=== PATIENT | male | born 1975 | race Caucasian/White ===

== ENCOUNTER 2023-11-28 09:17 | Inpatient (IN) | payer OTHER, SELFPAY ==
[2023-11-28] VITALS (19 sets, daily range): BP systolic 130–164; BP diastolic 63–106; PULSE 99–119; RESP 18–30; TEMP 36.9–37; O2SAT 88–100; BMI 20.4
--- NOTE | ~2023-11-28 | XR_ITS ---
Portable chest x-ray Comparison: 11/28/2023 Clinical History: Pneumonia Findings: Right basilar consolidation is compatible with pneumonia. Left lung clear. Cardiomediasti nal silhouette is stable. Bones and soft tissues are unremarkable. Impression: Right basilar pneumonia. Reviewed, dictated and finalized at [facility]. GER STRATEGIC ALLIANCES Impression: Right basilar pneumonia.
--- NOTE | ~2023-11-28 | XR_ITS ---
EXAMINATION: XR chest 1V portable DATE: 11/28/2023 10:13 INDICATION: Shortness of breath. TECHNIQUE: A single frontal view of the chest was obtained on 2 radiographs. COMPARISON: Chest 2 views 08/22/2019 FINDINGS: There are airspace opacities in right lower lobe. No pleural effusion or pneumothorax. The heart size is normal. IMPRESSION: 1. Right lower lobe airspace opacities, consistent with pneumonia . Radiographs are recommended in a few weeks to confirm resolution and exclude malignancy. Reviewed, dictated and finalized at location E. EGE BASKETBALL COACH
--- NOTE | ~2023-11-28 | XR_ITS ---
Portable chest x-ray Comparison: 11/30/2023 Clinical History: Pneumonia Findings: Right basilar pneumonia is unchanged. Left lung remains clear. Cardiomediastinal silhouet te is stable. Bones and soft tissues are unremarkable. Impression: Stable right lower lobe pneumonia. Reviewed, dictated and finalized at location . NQUENT NOTICE MACHINE OPERATOR Impression: Stable right lower lobe pneumonia.
--- NOTE | ~2023-11-28 | CT_ITS ---
EXAMINATION: CTA chest PE protocol DATE: 11/28/2023 11:41 INDICATION: Cough. Nausea and vomiting. TECHNIQUE: Computed tomography angiography (CTA) of the chest was performed with 100 mL Omnipaque-350 intravenous contrast timed to evaluate the pulmonary arteries. Coronal maximum intensity projection 3D-reconstructions were created by the technologist. Automated exposure control and iterative reconst ruction technique were employed. The dose-length product was 333.01 mGy-cm. COMPARISON: Chest single view 11/28/2023 FINDINGS: There are airspace and groundglass opacities with air bronchograms in right lower lobe. The re are mild airspace opacities in right middle lobe. There are centrilobular nodules in right upper l obe. There are airspace opacities in anteromedial basal segment left lower lobe. There are centrilobu lar nodules in left lower lobe. No pleural effusion. The heart size is normal. No pericardial effusio n. There is no pulmonary embolus. There is mild thoracic spondylosis. There is mild chronic anterior wedging of T12 and L1 vertebral bodies. IMPRESSION: 1. No pulmonary embolus. 2. Multifocal pneumonia with a lower lung predominance, right worse than left. Reviewed, dictated and finalized at location E. ESSION SUPERVISOR
--- NOTE | 2023-11-28 09:40 | ECG_ITS ---
Measurements Intervals [place] Rate: 110 P: 79 [place]: 134 QRS: 81 QRSD: 97 T: 60 QT: 307 QTc: 417 Interpretive Statements SINUS TACHYCARDIA POSSIBLE LEFT ATRIAL ENLARGEMENT INCOMPLETE RIGHT BUNDLE BRANCH BLOCK BASELINE WANDER- V4, V6 ABNORMAL ECG NO PREVIOUS ECG AVAILABLE FOR COMPARISON Electronically Signed On 11-28-2023 10:16:18 BONDED STRUCTURES REPAIRER by Janes Mazariegos D.O.
--- NOTE | 2023-11-28 09:47 | ED.GENADULT ---
HPI - General Adult General Chief complaint: Weakness Stated complaint: weakness Time Seen by Provider: 11/28/23 09:20 History of Present Illness HPI narrative: Gregg Kendrick is a 48 y/o male with PMhx of DM type II who presents today with his for generalized weakness. states that he started not feeling well 5 days ago with rhinorrhea/ body aches he started to feel worse 2 days ago and had some nausea and vomiting went to an and was swabbed for the flu / strep and it was negative and d/c home with ondansetron. states that yesterday and today he has become worse with severe fatigue / not eating for about 4 days/ has been tolerating liquids at home. Denies chest pain/ headache/ abdominal pain. Related Data Home Medications Medication Instructions Recorded Confirmed atorvastatin 20 mg tablet 20 mg PO DAILY 11/28/23 11/28/23 glimepiride 2 mg tablet 2 mg PO BID 11/28/23 11/28/23 metformin 500 mg tablet 500 mg PO BID 11/28/23 11/28/23 Allergies Allergy/AdvReac Type Severity Reaction Status Date / Time No Known Allergies Allergy Mild Verified 11/28/23 09:17 Review of Systems Review of Systems: CONSTITUTIONAL: Denies fever, chills, or sweats. EYES: Denies visual changes, redness, or discharge. ENT: Reports rhinorrhea and congestion, denies sore throat, or otalgia. CARDIOVASCULAR: Denies chest pain, palpitations, or edema. RESPIRATORY: Reports cough / cold symptoms that started 5 days ago GASTROINTESTINAL: Denies abdominal pain, nausea, vomiting, or diarrhea. GENITOURINARY: Denies dysuria or hematuria. SKIN: Denies rash or itching. MUSCULOSKELETAL: Denies back pain, joint pain, or myalgia. NEUROLOGIC: Denies headache, numbness, dizziness, or weakness. PSYCHIATRIC: Denies anxiety or depression. Exam Narrative: GENERAL: appears unwell/ disheveled HEAD: Normocephalic, atraumatic. EYES: PERRLA and EOMI. ENT: Nares clear, no rhinorrhea or epistaxis. Mucous membranes severely dry Oropharynx without tonsillar hypertrophy exudate or other lesions. NECK: Supple. No adenopathy or masses. No carotid bruits or JVD CHEST: RR labored / Coarse lung sounds more on the right then left HEART: Regular rate and rhythm. No murmur heard. Normal peripheral pulses. ABDOMEN: Soft, nontender, nondistended, normal active bowel sounds. EXTREMITIES: Normal range of motion. No edema. SKIN: Warm, dry, no rash. NEURO: No focal deficits. Alert and oriented x3. PSYCH: Normal mood and affect. Course Vital Signs Vital signs: Vital Signs Pulse Rate 114 H 11/28/23 09:31 Respiratory Rate 22 H 11/28/23 09:31 Blood Pressure 150/86 H 11/28/23 09:31 Pulse Oximetry 88 L 11/28/23 09:31 Oxygen Flow Rate 2 11/28/23 09:31 Pulse Rate 104 H 11/28/23 12:31 Respiratory Rate 25 H 11/28/23 12:31 Blood Pressure 164/94 H 11/28/23 12:31 Pulse Oximetry 100 11/28/23 12:31 Oxygen Flow Rate 2 11/28/23 10:00 Medical Decision Making MDM Narrative Medical decision making narrative: 48 y/o male pmhx of DM type two presents with his who states he hasn't felt well since Tuesday 5 days ago with URI symptoms with nasal congestion slight cough / body aches and started to feel worse with no food intake and went to the 2 days ago and was tested for flu/strep and d/c home with ondansetron. states he has not vomited since 2 days ago and is taking liquids at home but has not eaten in 4 days and his cough is getting worse and becoming more productive and pt is becoming much more weak generally. On exam pt appears severly dehydrated/ labored RR of 25-30/ coarse lung sounds cool and bluish nail beds initial O2 sat reading in the low 80's placed on 2 L and improved to 96%. Patient is alert and oriented X 4 and denies chest pain/ back pain/ headache/ Concern for : Sepsis/ DKA/ Dehydration/ Pneumonia / Pulmonary embolism / Plan to start a Sepsis work up while waiting on lab results including IV fluids and
[2023-11-28] MEDS: LACTATED RINGERS 2,000 ML 999 ML (09:55)
[2023-11-28 10:07] LABS: Basophils Absolute Auto 0.1 K/mm3 (0.0-0.1); Basophils Percent Auto 0.7 % (0.2-1.2); Eosinophils Absolute Auto 0.1 K/mm3 (0-0.3); Eosinophils Percent Auto 0.4 % (0-4.4); Hematocrit 43.5 % (42.0-52.0); Hemoglobin 14.6 g/dL (14.0-18.0); Immature Granulocyte Absolute 0.41 K/mm3 (0.00-0.031); Lymphocytes Absolute Auto 0.72 K/mm3 (0.9-3.2); Lymphocytes Percent Auto 3.5 % (18.3-44.2); Mean Corpuscular HGB Conc 33.6 g/dl (32-36); Mean Corpuscular Volume 86.5 fl (80-100); Mean Platelet Volume 10.4 fl (7.4-10.4); Monocytes Absolute Auto 1.4 K/mm3 (0.1-0.6); Monocytes Percent Auto 6.8 % (2.6-8.5); Neutrophils Percent Auto 86.6 % (45.5-73.1); Platelet Count Result 309 k/mm3 (150-375); Red Blood Count 5.03 M/mm3 (4.6-6.20); Red Cell Distribution Width 12.6 % (11.5-14.5); White Blood Count 20.8 K/mm3 (4.5-10.0)
[2023-11-28 10:17] LABS: Lactic Acid Reflex 2.6 mmol/L (0.7-2.0)
[2023-11-28 10:20] LABS: INR 1.1; Prothrombin Time 15.1 Seconds (11.1-14.7)
[2023-11-28 10:21] LABS: Partial Thromboplastin Time 32.1 SECONDS (22.3-36.8)
[2023-11-28 10:44] LABS: Influenza A QL RT-PCR Negative (Negative); Influenza B QL RT-PCR Negative (Negative); RSV RNA, RT-PCR Negative (Negative); SARS-CoV-2 RNA PCR Negative (Negative)
[2023-11-28] MEDS: DOXYCYCLINE 100 MG/NS 100 ML 100 MG/100 ML BAG IVPB (10:50)
[2023-11-28 11:03] LABS: D Dimer 1.97 ug/mL (<0.48)
[2023-11-28 11:25] LABS: Alanine Aminotransferase 17 U/L (6-50); Alkaline Phosphatase 187 U/L (38-126); Anion Gap 23 mmol/L (8-16); Aspartate Amino Transferase 14 U/L (17-59); Bilirubin,Total 0.6 mg/dL (0.2-1.3); Blood Urea Nitrogen 50 mg/dL (9-20); Calcium 11.1 mg/dL (8.4-10.2); Carbon Dioxide 9 mmol/L (22-30); Chloride 97 mmol/L (98-107); Estimated CRCL calculation 49 ml/min; Estimated Glomerular Filt Rate 44; Glucose 714 mg/dL (65-110); Potassium 5.3 mmol/L (3.4-5.0); Sodium 129 mmol/L (137-145)
[2023-11-28 11:29] LABS: Base Excess ABG -13.8 mEq/l (+/-2.0); Fractional Inspired Oxygen 28 %; HCO3 ABG 13.1 mEq/l (22.0-26.0); PCO2 ABG 33.8 mmHg (35.0-45.0); PO2 FiO2 Ratio Arterial Blood 1.56 %; Total Hemoglobin 13.3 g/dL (12.0-18.0)
[2023-11-28 11:31] LABS: PO2 ABG 43.7 mmHg (80.0-100.0); pH ABG 7.205 (7.350-7.450)
[2023-11-28 11:32] LABS: Device NASAL CANNULA; Oxygen Saturation ABG 70.1 % (95.0-100.0)
[2023-11-28 11:34] LABS: Estimated CRCL calculation 55 ml/min; Estimated Glomerular Filt Rate 50
[2023-11-28 11:48] LABS: CRP > 45.0 mg/dL (<1.0)
[2023-11-28 11:53] LABS: Magnesium 2.8 mg/dL (1.6-2.3); Phosphorus 4.8 mg/dL (2.5-4.5)
[2023-11-28 12:02] LABS: Appearance Urine Clear (Clear); Bacteria Urine None Seen /hpf; Bilirubin Urine Negative (Negative); Blood Urine 1+ (Negative); Color Urine Yellow (Yellow); Glucose Urine UA 3+ mg/dL (Negative); Ketones Urine 2+ mg/dL (Negative); Leukocyte Esterase Ur Negative LEU/UL (Negative); Nitrate Urine Negative (Negative); Protein Urine 1+ mg/dL (Negative); RBC Urine 0-2 /hpf (0-2); Specific Grav Ur 1.028 (1.001-1.035); Squamous Epithelial Cell Urine None seen /hpf (Few); Urobilinogen Urine 0.2 mg/dL (<2.0); WBC Urine 0-5 /hpf
[2023-11-28 12:13] LABS: Add Urine Microscopic? YES
[2023-11-28 12:21] LABS: Anion Gap 16 mmol/L (8-16); Blood Urea Nitrogen 46 mg/dL (9-20); Calcium 9.4 mg/dL (8.4-10.2); Carbon Dioxide 10 mmol/L (22-30); Chloride 99 mmol/L (98-107); Estimated CRCL calculation 69 ml/min; Estimated Glomerular Filt Rate > 60; Glucose 682 mg/dL (65-110); Potassium 5.3 mmol/L (3.4-5.0); Sodium 125 mmol/L (137-145)
[2023-11-28] MEDS: INSULIN HUMAN REGULAR (*BKC) 100 UNITS in SODIUM CHLORIDE 0.9% IV 99 ML 7.5 UNITS IV CONT (12:24)
[2023-11-28] MEDS: LACTATED RINGERS 1,000 ML 999 ML IV CONT ×2 (12:28→13:19)
[2023-11-28 13:04] LABS: Reflex Lactic Acid Yes or No Add Lactic
--- NOTE | 2023-11-28 13:28 | WPDCNINT ---
Assessment and Plan Assessment and plan (1) Diabetic ketoacidosis: Code(s): E11.10 - Type 2 diabetes mellitus with ketoacidosis without coma Status: Acute Assessment and Plan: patient admitted on 11/28/2023 with hyperglycemia, anion gap metabolic acidosis and diabetic ketoacidosis, patient received 2 L IV fluid bolus in the ER, started on insulin infusion per DKA protocol - patient given additional 1 L IV fluid bolus in the ICU - continue insulin infusion for now per DKA protocol - NPO except ice chips only - hemoglobin A1c is pending - will transition patient once anion gap and metabolic acidosis resolves (2) Type 2 diabetes mellitus: Code(s): E11.9 - Type 2 diabetes mellitus without complications Status: Acute Assessment and Plan: patient with history type 2 diabetes on oral hypoglycemics - glimepiride and metformin (3) Sepsis: Code(s): A41.9 - Sepsis, unspecified organism Status: Acute Assessment and Plan: patient presented with shortness of breath, cough, upper respiratory symptoms with nasal congestion. Denies any fevers - patient with leukocytosis, elevated lactic acid, acute kidney injury - trend lactic acids -11/27; chest x-ray showed right lower lobe pneumonia -11/27: chest CTA : no pulmonary embolism, multifocal pneumonia with lower lung predominance, right worse than left. -11/27: started patient on ceftriaxone, azithromycin and vancomycin given extensive pneumonia (4) Pneumonia: Code(s): J18.9 - Pneumonia, unspecified organism Status: Acute Assessment and Plan: treatment as above (5) Acute kidney injury: Code(s): N17.9 - Acute kidney failure, unspecified Status: Acute Assessment and Plan: patient presented with diabetic ketoacidosis, pneumonia, decreased oral intake, acute kidney injury with creatinine of 1.70 on admission patient has been fluid resuscitated - repeat creatinine 1.20 - continue to monitor renal function, electrolytes and urine output (6) Hyperlipidemia: Code(s): E78.5 - Hyperlipidemia, unspecified Status: Acute Assessment and Plan: patient on atorvastatin at home, will restart once patient starts taking oral medications (7) Oral thrush: Code(s): B37.0 - Candidal stomatitis Status: Acute Assessment and Plan: likely related to diabetes - have ordered nystatin swish and spit Plan DVT prophylaxis: Lovenox Stress ulcer prophylaxis: not indicated Nutrition:NPO except ice chips Code Status: full code Critical Care Time Spent: 48 minutes discussed with patient and spouse at bedside, updated them with patient's condition and plan of care. I answered all questions Due to a high probability of clinically significant, life threatening deterioration, the patient required my highest level of preparedness to intervene emergently and I personally spent this critical care time directly and personally managing the patient. This critical care time included obtaining a history; examining the patient; pulse oximetry; ordering and review of studies; arranging urgent treatment with development of a management plan; evaluation of patient's response to treatment; frequent reassessment; and discussions with other providers. It was exclusive of separately billable procedures and treating other patients and teaching time. Please see Assessment and Plan section and the rest of the note for further information on patient assessment and treatment This dictation may have been done utilizing a voice recognition system. Attempts have been made to correct errors. However, there may be uncorrected grammatical, spelling, and recognitions errors present. Liquid Sugar Melter Consult Note Consult date: 11/28/23 Reason for consult: Diabetic ketoacidosis, pneumonia, generalized weakness, hyperglycemia, decreased oral intake HPI: Gregg Kendrick is a 48 year old male with past medical histo
[2023-11-28 13:53] LABS: Lactic Acid 1.8 mmol/L (0.7-2.0)
[2023-11-28 14:01] LABS: Glucose 552 mg/dL (65-110)
[2023-11-28 14:02] LABS: Beta-Hydroxybutyrate/Acetoacetate 6.38 mmol/L (0.02-0.27)
[2023-11-28 14:44] LABS: Glucose Point of Care > 500 mg/dl (65-105)
[2023-11-28 14:44] LABS: Glucose Point of Care 475 mg/dl (65-105)
[2023-11-28 15:11] LABS: MRSA (PCR) NOT DETECTED (NOT DETECTE)
[2023-11-28 15:13] LABS: Glucose Point of Care 404 mg/dl (65-105)
[2023-11-28 15:14] LABS: Hemoglobin A1C 12.1 % (<5.7)
[2023-11-28] MEDS: SODIUM CHLORIDE 0.9% IV 1,000 ML 150 ML IV CONT (15:17)
--- NOTE | 2023-11-28 15:17 | PM.IMHP ---
H&P: HPI History of Present Illness Date/Time: 11/28/23 15:17 Chief Complaint: Weakness, Cough, N/V Narrative: 48 y/o M presents here with generalized weakness, rhinorrhea, body aches, nausea, vomiting, fatigue, and lack of appetite with PMH of DM2 and HLD. Patient presents here from home for further evaluation of fatigue, weakness, and body aches. Patient reports he began feeling unwell on Tue (11/23) with rhinorrhea and body aches. Then developed lack of appetite/poor PO intake on . Tuesday (11/25) he developed N/V, extreme lack of energy, and he sought care at [facility]. He tested negative for Influenza, COVID, and Strep. He was ultimately discharged home with Zofran prescription. Patient further deteriorated over the last 24 hours and is now reporting severe fatigue, abdominal discomfort, and abdominal cramping. Has not been able to eat well but tolerating liquids for a total of 4 days. Patient sought care today due to continued inability to tolerate more than liquids, the extreme fatigue, and general malaise. Arrived to [facility] ED in respiratory distress. Initial O2 sat 80's on RA. Placed on supplemental O2 with subsequent correction and reduced distress. Patient now in ICU and reporting improvement post-fluids and reduction in glucose levels. Patient denies any unintentional weight loss. Initial VS at presentation: 98.5 F, HR 114, RR 22, 150/86, 88% on RA. Placed on 2 L NC which increased sats to 99% ED workup showed: WBC 20.8, no anemia, D-dimer 1.97, sodium 129, K 5.3, creatinine 1.7, gap 23, glucose 714, lactic acid 2.6, CRP > 45.0, beta-hydroxy 6.38, and UA not suspicious for UTI. Viral PCR negative. MRSA PCR negative. CXR showed right lower lobe airspace opacity. Chest CTA showed no PE and multifocal pneumonia with a lower lung predominance (right worse than left). Review of Systems Review of Systems: All systems reviewed & are unremarkable except as noted in HPI and below PMFSH Past Medical History Medical History Hyperlipidemia Type 2 diabetes mellitus Surgical History Surgical History History of appendectomy Social History Social History Smoking packs per day: 1 Smoking cigarettes per day: 20.0 Years smoked: 20 Smoking pack-years: 20.00 Smoking status: Current every day smoker Tobacco type: cigarettes Smoking end date: 11/21/23 Alcohol intake: unknown Substance use: unknown Spiritual care concerns: No Meds Home Medications and Allergies Home Medications Medication Instructions Recorded Confirmed Type atorvastatin 20 mg tablet 20 mg PO DAILY 11/28/23 11/28/23 History glimepiride 2 mg tablet 2 mg PO BID 11/28/23 11/28/23 History metformin 500 mg tablet 500 mg PO BID 11/28/23 11/28/23 History Allergies Allergy/AdvReac Type Severity Reaction Status Date / Time No Known Allergies Allergy Mild Verified 11/28/23 09:17 Vital Signs Vital Signs - 24 hr 11/28/23 09:31 11/28/23 09:47 11/28/23 10:51 Temperature Pulse Rate 114 H 114 H 114 H Respiratory Rate 22 H 22 H Blood Pressure 150/86 H 146/106 H Pulse Oximetry 88 L 96 Oxygen Flow Rate 2 11/28/23 10:00 11/28/23 10:15 11/28/23 12:06 Temperature Pulse Rate 119 H 104 H Respiratory Rate 18 22 H Blood Pressure 146/80 H Pulse Oximetry 96 98 Oxygen Flow Rate 2 11/28/23 12:09 11/28/23 12:11 11/28/23 12:29 Temperature Pulse Rate 103 H 104 H 103 H Respiratory Rate 30 H 26 H 21 H Blood Pressure 153/89 H 153/89 H 152/97 H Pulse Oximetry 99 99 100 Oxygen Flow Rate 11/28/23 12:31 11/28/23 14:30 11/28/23 14:57 Temperature 98.5 F Pulse Rate 104 H 99 Respiratory Rate 25 H 23 H Blood Pressure 164/94 H 155/90 H Pulse Oximetry 100 99 Oxygen Flow Rate Exam Narrative: whiteside pallor. Co
[2023-11-28 16:02] LABS: Anion Gap 12 mmol/L (8-16); Blood Urea Nitrogen 40 mg/dL (9-20); Calcium 10.6 mg/dL (8.4-10.2); Carbon Dioxide 19 mmol/L (22-30); Chloride 105 mmol/L (98-107); Estimated CRCL calculation 68 ml/min; Estimated Glomerular Filt Rate > 60; Glucose 311 mg/dL (65-110); Potassium 4.4 mmol/L (3.4-5.0); Sodium 136 mmol/L (137-145)
[2023-11-28] MEDS: AZITHROMYCIN 500 MG/NS 250 ML 500 MG/250 ML BAG 250 MG IVPB (16:14)
[2023-11-28 16:18] LABS: Glucose Point of Care 297 mg/dl (65-105)
[2023-11-28 17:22] LABS: Glucose Point of Care 311 mg/dl (65-105)
[2023-11-28 17:57] LABS: Glucose Point of Care 170 mg/dl (65-105)
[2023-11-28] MEDS: KCL 20 MEQ/D5/0.45% SOD CHL 1,000 ML 150 ML IV CONT (18:06)
[2023-11-28] MEDS: NYSTATIN 100,000 UNITS/ML SUSP 5 ML ORAL.SUSP PO ×2 (18:14→20:39)
[2023-11-28] MEDS: VANCOMYCIN 1,500 MG/NS 500 ML 1,500 MG/500 ML BAG 250 MG IVPB (18:17)
[2023-11-28 19:07] LABS: Glucose Point of Care 120 mg/dl (65-105)
[2023-11-28 20:01] LABS: Anion Gap 6 mmol/L (8-16); Blood Urea Nitrogen 33 mg/dL (9-20); Calcium 9.8 mg/dL (8.4-10.2); Carbon Dioxide 22 mmol/L (22-30); Chloride 112 mmol/L (98-107); Estimated CRCL calculation 82 ml/min; Estimated Glomerular Filt Rate > 60; Glucose 110 mg/dL (65-110); Sodium 140 mmol/L (137-145)
[2023-11-28 20:21] LABS: Glucose Point of Care 114 mg/dl (65-105)
[2023-11-28] MEDS: INSULIN GLARGINE (*BKC) 100 UNITS/ML 15 UNITS SUB-Q (20:38)
[2023-11-28] MEDS: BENZONATATE 100 MG CAPSULE PO (21:23)
[2023-11-28 21:26] LABS: Glucose Point of Care 258 mg/dl (65-105)
[2023-11-28 21:47] LABS: Alveolar/Arterial O2 Gradient 90.1 mmHg; Base Excess ABG -5.6 mEq/l (+/-2.0); Fractional Inspired Oxygen 28 %; HCO3 ABG 19.3 mEq/l (22.0-26.0); Oxygen Content ABG 16.7 %vol (16.0-22.0); Oxygen Saturation ABG 92.8 % (95.0-100.0); Oxyhemoglobin 92.6 % THb (90.0-100.0); PCO2 ABG 35.6 mmHg (35.0-45.0); PO2 ABG 67.5 mmHg (80.0-100.0); PO2 FiO2 Ratio Arterial Blood 2.41 %; Total Hemoglobin 12.8 g/dL (12.0-18.0); pH ABG 7.351 (7.350-7.450)
[2023-11-28 21:48] LABS: Device NASAL CANNULA; Modified Allen's Test Pass
[2023-11-28 21:49] LABS: Site Drawn LEFT RADIAL
[2023-11-28 23:51] LABS: Ammonia < 9 umol/L (9-30)
[2023-11-29] VITALS (15 sets, daily range): BP systolic 125–161; BP diastolic 74–91; PULSE 98–114; RESP 20–35; TEMP 36.9–37.5; O2SAT 80–98; BMI 20.3
[2023-11-29 00:31] LABS: Anion Gap 10 mmol/L (8-16); Blood Urea Nitrogen 28 mg/dL (9-20); Calcium 9.4 mg/dL (8.4-10.2); Carbon Dioxide 17 mmol/L (22-30); Chloride 109 mmol/L (98-107); Estimated CRCL calculation 92 ml/min; Estimated Glomerular Filt Rate > 60; Glucose 219 mg/dL (65-110); Sodium 136 mmol/L (137-145)
[2023-11-29 04:55] LABS: Basophils Percent Auto 0.1 % (0.2-1.2); Eosinophils Absolute Auto 0.2 K/mm3 (0-0.3); Eosinophils Percent Auto 1.6 % (0-4.4); Hematocrit 36.8 % (42.0-52.0); Hemoglobin 12.5 g/dL (14.0-18.0); Immature Granulocyte Absolute 0.35 K/mm3 (0.00-0.031); Immature Granulocyte Percent A 2.3 % (0-0.5); Lymphocytes Absolute Auto 0.99 K/mm3 (0.9-3.2); Lymphocytes Percent Auto 6.5 % (18.3-44.2); Mean Corpuscular Hemoglobin 28.9 pg (26-34); Mean Corpuscular Volume 85.2 fl (80-100); Mean Platelet Volume 10.4 fl (7.4-10.4); Monocytes Percent Auto 6.8 % (2.6-8.5); Neutrophils Absolute Auto 12.6 K/mm3 (1.3-6.7); Neutrophils Percent Auto 82.7 % (45.5-73.1); Nucleated Red Blood Cells Perc 0.1 % (0.0-0.2); Platelet Count Result 251 k/mm3 (150-375); Red Blood Count 4.32 M/mm3 (4.6-6.20); Red Cell Distribution Width 12.6 % (11.5-14.5); White Blood Count 15.2 K/mm3 (4.5-10.0)
[2023-11-29 05:04] LABS: INR 1.1; Prothrombin Time 14.7 Seconds (11.1-14.7)
[2023-11-29 05:29] LABS: Alanine Aminotransferase 14 U/L (6-50); Albumin Level 3.2 g/dL (3.5-5.1); Alkaline Phosphatase 132 U/L (38-126); Anion Gap 15 mmol/L (8-16); Aspartate Amino Transferase 17 U/L (17-59); Bilirubin,Total 0.5 mg/dL (0.2-1.3); Blood Urea Nitrogen 25 mg/dL (9-20); Calcium 9.7 mg/dL (8.4-10.2); Carbon Dioxide 14 mmol/L (22-30); Chloride 106 mmol/L (98-107); Estimated CRCL calculation 82 ml/min; Estimated Glomerular Filt Rate > 60; Glucose 272 mg/dL (65-110); Phosphorus 1.6 mg/dL (2.5-4.5); Potassium 4.2 mmol/L (3.4-5.0); Sodium 135 mmol/L (137-145)
[2023-11-29 06:18] LABS: CRP > 45.0 mg/dL (<1.0)
[2023-11-29] MEDS: INSULIN GLARGINE (*BKC) 100 UNITS/ML 10 UNITS SUB-Q (08:00)
[2023-11-29] MEDS: INSULIN ASPART (*BKC) 100 UNITS/ML SUB-Q ×4 (08:01→20:39)
[2023-11-29 08:03] LABS: Glucose Point of Care 262 mg/dl (65-105)
[2023-11-29] MEDS: SODIUM CHLORIDE 0.9% IV 1,000 ML 999 ML IV CONT (08:05)
[2023-11-29] MEDS: ENOXAPARIN 40 MG/0.4 ML SYRINGE SUB-Q (08:06)
[2023-11-29] MEDS: ATORVASTATIN 20 MG TABLET PO (08:06)
[2023-11-29] MEDS: PANTOPRAZOLE SODIUM IV 40 MG VIAL IV PUSH (08:06)
[2023-11-29] MEDS: NYSTATIN 100,000 UNITS/ML SUSP 5 ML ORAL.SUSP PO ×3 (08:06→20:39)
[2023-11-29] MEDS: VANCOMYCIN 1,250 MG/NS 250 ML 1,250 MG/250 ML BAG 166.67 MG IVPB ×2 (09:35→20:40)
[2023-11-29] MEDS: POTASSIUM/PHOSPHORUS/SODIUM 1.5 GM PACKET 1 PACKET PO (09:36)
[2023-11-29] MEDS: cefTRIAXone 2 GM/NS 100 ML 2 GM/100 ML BAG IVPB (11:56)
[2023-11-29 11:57] LABS: Glucose Point of Care 243 mg/dl (65-105)
--- NOTE | 2023-11-29 12:13 | WPDINTPN ---
Progress Note: A&P Assessment and Plan (1) Diabetic ketoacidosis: Code(s): E11.10 - Type 2 diabetes mellitus with ketoacidosis without coma Status: Acute Assessment and Plan: patient admitted on 11/28/2023 with hyperglycemia, anion gap metabolic acidosis and diabetic ketoacidosis, patient received 2 L IV fluid bolus in the ER, started on insulin infusion per DKA protocol - patient given additional 1 L IV fluid bolus in the ICU -patient transition to long-acting insulin and sliding scale insulin overnight -on diabetic diet - hemoglobin A1c 12.1 this admission -given additional IV fluid bolus this morning -will recheck BMP at noon (2) Type 2 diabetes mellitus: Code(s): E11.9 - Type 2 diabetes mellitus without complications Status: Acute Assessment and Plan: patient with history type 2 diabetes on oral hypoglycemics - glimepiride and metformin -hemoglobin A1c is elevated above, will require better blood sugar control -continue long-acting insulin and sliding scale insulin for now (3) Sepsis: Code(s): A41.9 - Sepsis, unspecified organism Status: Acute Assessment and Plan: patient presented with shortness of breath, cough, upper respiratory symptoms with nasal congestion. Denies any fevers - patient with leukocytosis, elevated lactic acid, acute kidney injury - lactic acid normalized -11/27; chest x-ray showed right lower lobe pneumonia -11/27: chest CTA : no pulmonary embolism, multifocal pneumonia with lower lung predominance, right worse than left. -11/27: started patient on ceftriaxone, azithromycin and vancomycin given extensive pneumonia 11/27: Blood cultures: GPC in pairs 2/2 bottles (4) Pneumonia: Code(s): J18.9 - Pneumonia, unspecified organism Status: Acute Assessment and Plan: treatment as above (5) Acute kidney injury: Code(s): N17.9 - Acute kidney failure, unspecified Status: Acute Assessment and Plan: patient presented with diabetic ketoacidosis, pneumonia, decreased oral intake, acute kidney injury with creatinine of 1.70 on admission patient has been fluid resuscitated - creatinine 0.90 this morning - continue to monitor renal function, electrolytes and urine output (6) Hyperlipidemia: Code(s): E78.5 - Hyperlipidemia, unspecified Status: Acute Assessment and Plan: Continue Atorvastatin (7) Oral thrush: Code(s): B37.0 - Candidal stomatitis Status: Acute Assessment and Plan: likely related to diabetes - nystatin swish and spit Plan DVT prophylaxis: Lovenox Stress ulcer prophylaxis: not indicated Nutrition: Diabetic diet Code Status: full code Critical Care Time Spent: 33 minutes Discussed with patient and spouse at bedside, updated them with patient's condition and plan of care. I answered all questions Due to a high probability of clinically significant, life threatening deterioration, the patient required my highest level of preparedness to intervene emergently and I personally spent this critical care time directly and personally managing the patient. This critical care time included obtaining a history; examining the patient; pulse oximetry; ordering and review of studies; arranging urgent treatment with development of a management plan; evaluation of patient's response to treatment; frequent reassessment; and discussions with other providers. It was exclusive of separately billable procedures and treating other patients and teaching time. Please see Assessment and Plan section and the rest of the note for further information on patient assessment and treatment This dictation may have been done utilizing a voice recognition system. Attempts have been made to correct errors. However, there may be uncorrected grammatical, spelling, and recognitions errors present. Subjective Date/time seen: 11/29/23 12:13 Interval history: Reason for consult: Diabetic ketoa
[2023-11-29 12:35] LABS: Anion Gap 13 mmol/L (8-16); Blood Urea Nitrogen 23 mg/dL (9-20); Calcium 9.4 mg/dL (8.4-10.2); Carbon Dioxide 16 mmol/L (22-30); Chloride 108 mmol/L (98-107); Estimated CRCL calculation 82 ml/min; Estimated Glomerular Filt Rate > 60; Glucose 250 mg/dL (65-110); Potassium 4.1 mmol/L (3.4-5.0); Sodium 137 mmol/L (137-145)
[2023-11-29] MEDS: AZITHROMYCIN 500 MG/NS 250 ML 500 MG/250 ML BAG 250 MG IVPB (13:32)
--- NOTE | 2023-11-29 17:04 | PM.IMPN ---
Progress Note: A&P Assessment and Plan (1) Diabetic ketoacidosis: Code(s): E11.10 - Type 2 diabetes mellitus with ketoacidosis without coma Status: Acute Assessment and Plan: Patient admitted on 11/28/23 with hyperglycemia and anion gap metabolic acidosis c/w DKA. Patient received 2 L IV fluid bolus and started on insulin infusion per DKA protocol. Given additional 1 L IV fluid bolus in ICU Serial BMP showing anion gap closed and he was transitioned to lantus. Remains acidotic as his kidney's try to re-equilibrate Monitor BMP. Add back IV fluids (2) Sepsis: Code(s): A41.9 - Sepsis, unspecified organism Status: Acute Assessment and Plan: Patient presented with cold/flu symptoms and found to have sepsis with tachycardia, leukocytosis, elevated lactic acid and MARIPOSA Sepsis with septicemia related to PNA and bacteremia. IV fluids given. Lactic acid normalized. Chest CTA showing no PE but multifocal pneumonia with lower lung predominance, right worse than left. Started on ceftriaxone, azithromycin and vancomycin 3/ BCx 3/4: growing GPC in pairs 2/2 bottles Follow up culture results. Repeat BCx in 1-2 days. Wean abx as able (3) Pneumonia: Code(s): J18.9 - Pneumonia, unspecified organism Status: Acute Assessment and Plan: As above (4) Type 2 diabetes mellitus: Code(s): E11.9 - Type 2 diabetes mellitus without complications Status: Acute Assessment and Plan: Patient with Type II DM on glimepiride and metformin at home. A1c 12.1. The patient's blood glucose was reviewed on 11/28 Glucose remains elevated. Diabetic diet started Continue AccuCheks covering with sliding scale. Hypoglycemia protocol available as needed. Gas Operations Superintendent and Diab educator consulted. (5) Acute kidney injury: Code(s): N17.9 - Acute kidney failure, unspecified Status: Acute Assessment and Plan: Creatinine on admisison was 1.7. No baseline to compare With IV fluids, Cr has trended down to 0.9 Continue to monitor renal function, electrolytes and urine output (6) Oral thrush: Code(s): B37.0 - Candidal stomatitis Status: Acute Assessment and Plan: Related to diabetes Nystatin swish and spit ordered (7) Hyperlipidemia: Code(s): E78.5 - Hyperlipidemia, unspecified Status: Acute Assessment and Plan: AST/ALT normal. Continue Atorvastatin Plan DVT prophylaxis: Lovenox Stress ulcer prophylaxis: not indicated Nutrition: Diabetic diet Code Status: full code Subjective Date/time seen: 11/29/23 17:04 Interval history: 48yo male with DM and HLD here for GNW, body aches, n/v and poor appetite and found to have DKA, PNA and bacteremia. He feels better. Tolerating oral intake but eating only small amounts. He was having a chills, fevers and nonproductive cough at home. No CP or SOB. Exam Narrative: AF 99.5 144/83 101 28 90% ra Gen - NARD lying almost flat in bed Chest - coarse BS with right>left basilar crackles. nml RR CV - RRR S1/S2 (HR 72). Tele showing no significant dysrhythmias Abd - Soft, NT/ND, Positive BS Ext - No pedal edema. 2+ PT pulses bilaterally Psych - Nml mood and affect Skin - Warm and dry Objective Data Vital Signs Vital Signs: Vital Signs - 24 hr 11/28/23 18:00 11/28/23 18:00 11/28/23 20:00 Temperature 98.6 F Pulse Rate 114 H 114 H 103 H Respiratory Rate 22 H 24 H Blood Pressure 130/99 H 143/63 H Pulse Oximetry 98 99 Oxygen Delivery Oxygen Flow Rate Fraction of Inspired Oxygen 11/28/23 20:00 11/28/23 20:00 11/28/23 21:57 Temperature Pulse Rate 103 H 107 H Respiratory Rate 24 H Blood Pressure Pulse Oximetry 99 98 Oxygen Delivery Nasal Cannula Nasal Cannula Oxygen Flow Rate 2 2 Fraction of Inspired Oxygen 28 11/28/23 22:00 11/28/23 22:00 11/29/23 00:00 Temperature 98.4 F Pulse Rate 108 H 108 H 102 H Resp
[2023-11-29 17:57] LABS: Glucose Point of Care 205 mg/dl (65-105)
[2023-11-29] MEDS: SODIUM CHLORIDE 0.9% IV 1,000 ML 70 ML IV CONT (19:05)
[2023-11-29 20:30] LABS: Glucose Point of Care 316 mg/dl (65-105)
[2023-11-29] MEDS: INSULIN GLARGINE (*BKC) 100 UNITS/ML 25 UNITS SUB-Q (20:39)
[2023-11-30] VITALS (10 sets, daily range): BP systolic 113–159; BP diastolic 61–94; PULSE 86–114; RESP 18–32; TEMP 35.7–37.4; O2SAT 92–100
[2023-11-30 04:13] LABS: Basophils Absolute Auto 0.1 K/mm3 (0.0-0.1); Basophils Percent Auto 0.4 % (0.2-1.2); Eosinophils Percent Auto 0.2 % (0-4.4); Hematocrit 34.5 % (42.0-52.0); Hemoglobin 11.7 g/dL (14.0-18.0); Immature Granulocyte Absolute 0.16 K/mm3 (0.00-0.031); Immature Granulocyte Percent A 1.3 % (0-0.5); Lymphocytes Absolute Auto 1.51 K/mm3 (0.9-3.2); Mean Corpuscular HGB Conc 33.9 g/dl (32-36); Mean Corpuscular Volume 85.4 fl (80-100); Mean Platelet Volume 9.9 fl (7.4-10.4); Monocytes Percent Auto 8.1 % (2.6-8.5); Neutrophils Absolute Auto 9.8 K/mm3 (1.3-6.7); Platelet Count Result 240 k/mm3 (150-375); Red Blood Count 4.04 M/mm3 (4.6-6.20); Red Cell Distribution Width 12.7 % (11.5-14.5); White Blood Count 12.6 K/mm3 (4.5-10.0)
[2023-11-30 04:22] LABS: Lactic Acid Reflex 0.9 mmol/L (0.7-2.0)
[2023-11-30 04:25] LABS: Partial Thromboplastin Time 31.8 SECONDS (22.3-36.8)
[2023-11-30 04:42] LABS: Alanine Aminotransferase 18 U/L (6-50); Albumin Level 2.8 g/dL (3.5-5.1); Alkaline Phosphatase 140 U/L (38-126); Anion Gap 6 mmol/L (8-16); Aspartate Amino Transferase 26 U/L (17-59); Bilirubin,Total 0.4 mg/dL (0.2-1.3); Blood Urea Nitrogen 18 mg/dL (9-20); Calcium 8.6 mg/dL (8.4-10.2); Carbon Dioxide 24 mmol/L (22-30); Chloride 108 mmol/L (98-107); Estimated CRCL calculation 91 ml/min; Estimated Glomerular Filt Rate > 60; Glucose 179 mg/dL (65-110); Magnesium 2.1 mg/dL (1.6-2.3); Sodium 138 mmol/L (137-145)
[2023-11-30 05:21] LABS: CRP 24.7 mg/dL (<1.0); Potassium 3.6 mmol/L (3.4-5.0)
[2023-11-30] MEDS: INSULIN ASPART (*BKC) 100 UNITS/ML SUB-Q ×3 (07:48→16:44)
[2023-11-30] MEDS: PANTOPRAZOLE SODIUM IV 40 MG VIAL IV PUSH (08:02)
[2023-11-30] MEDS: ENOXAPARIN 40 MG/0.4 ML SYRINGE SUB-Q (08:02)
[2023-11-30] MEDS: ATORVASTATIN 20 MG TABLET PO (08:02)
[2023-11-30] MEDS: NYSTATIN 100,000 UNITS/ML SUSP 5 ML ORAL.SUSP PO ×4 (08:02→20:44)
[2023-11-30 08:07] LABS: Glucose Point of Care 240 mg/dl (65-105)
[2023-11-30 08:16] LABS: Vancomycin Trough 7.6 ug/mL (10.0-20.0)
[2023-11-30] MEDS: INSULIN GLARGINE (*BKC) 100 UNITS/ML 10 UNITS SUB-Q (09:37)
[2023-11-30] MEDS: VANCOMYCIN 1,750 MG/NS 500 ML 1,750 MG/500 ML BAG 250 MG IVPB ×2 (09:37→20:44)
--- NOTE | 2023-11-30 11:13 | PCFNICU ---
ICU Rounding Note: Pt current nutrition is DBCC with Glucerna shakes BID. Last recorded weight is 64 kg, stable. Bowel Motility: Last reported BM 11/24 Labs Reviewed: Glu 179, Alb 2.8 Meds Noted:Vancomycin, Protonix, Lovenox, NovoLog, Zithromax, Lipitor Skin: WNL Additional Notes: Patient is tolerating DBCC diet. Intake today 50% of meal and 240 ml of diet supplement. Oil Transport Driver did see patient for insulin training 11/28. Agree with diet orders. Following daily in ICU rounds. Will monitor weight, labs, skin, oral intake, meds every 7 days.
--- NOTE | 2023-11-30 12:00 | WPDINTPN ---
Progress Note: A&P Assessment and Plan (1) Diabetic ketoacidosis: Code(s): E11.10 - Type 2 diabetes mellitus with ketoacidosis without coma Status: Acute Assessment and Plan: patient admitted on 11/28/2023 with hyperglycemia, anion gap metabolic acidosis and diabetic ketoacidosis, patient received 2 L IV fluid bolus in the ER, started on insulin infusion per DKA protocol - patient given additional 1 L IV fluid bolus in the ICU -patient transition to long-acting insulin and sliding scale insulin overnight -on diabetic diet - hemoglobin A1c 12.1 this admission -patient states he has not been taking care of his sugars and himself, but is going to be moved more carefully and look after himself from here onwards (2) Type 2 diabetes mellitus: Code(s): E11.9 - Type 2 diabetes mellitus without complications Status: Acute Assessment and Plan: patient with history type 2 diabetes on oral hypoglycemics - glimepiride and metformin -hemoglobin A1c is elevated above, will require insulin for better blood sugar control -continue long-acting insulin and sliding scale insulin for now -will increase Lantus (3) Sepsis: Code(s): A41.9 - Sepsis, unspecified organism Status: Acute Assessment and Plan: patient presented with shortness of breath, cough, upper respiratory symptoms with nasal congestion. Denies any fevers - patient with leukocytosis, elevated lactic acid, acute kidney injury - lactic acid normalized -11/27; chest x-ray showed right lower lobe pneumonia -11/27: chest CTA : no pulmonary embolism, multifocal pneumonia with lower lung predominance, right worse than left. -11/27: started patient on ceftriaxone, azithromycin and vancomycin given extensive pneumonia -11/27: Blood cultures: Strep pneumo 2/2 bottles -11/29: Repeat blood cultures obtained (4) Pneumonia: Code(s): J18.9 - Pneumonia, unspecified organism Status: Acute Assessment and Plan: treatment as above (5) Acute kidney injury: Code(s): N17.9 - Acute kidney failure, unspecified Status: Acute Assessment and Plan: patient presented with diabetic ketoacidosis, pneumonia, decreased oral intake, acute kidney injury with creatinine of 1.70 on admission patient has been fluid resuscitated - creatinine 0.80 this morning - continue to monitor renal function, electrolytes and urine output (6) Hyperlipidemia: Code(s): E78.5 - Hyperlipidemia, unspecified Status: Acute Assessment and Plan: Continue Atorvastatin (7) Oral thrush: Code(s): B37.0 - Candidal stomatitis Status: Acute Assessment and Plan: likely related to diabetes - nystatin swish and spit Plan DVT prophylaxis: Lovenox Stress ulcer prophylaxis: not indicated Nutrition: Diabetic diet with supplements Code Status: full code Critical Care Time Spent: 31 minutes Patient may transfer out of the ICU if okay with hospitalist Discussed with patient and spouse at bedside, updated them with patient's condition and plan of care. I answered all questions Due to a high probability of clinically significant, life threatening deterioration, the patient required my highest level of preparedness to intervene emergently and I personally spent this critical care time directly and personally managing the patient. This critical care time included obtaining a history; examining the patient; pulse oximetry; ordering and review of studies; arranging urgent treatment with development of a management plan; evaluation of patient's response to treatment; frequent reassessment; and discussions with other providers. It was exclusive of separately billable procedures and treating other patients and teaching time. Please see Assessment and Plan section and the rest of the note for further information on patient assessment and treatment This dictation may have been done utilizing a voice recognition system.
[2023-11-30 12:01] LABS: Glucose Point of Care 206 mg/dl (65-105)
[2023-11-30] MEDS: cefTRIAXone 2 GM/NS 100 ML 2 GM/100 ML BAG IVPB (12:23)
--- NOTE | 2023-11-30 13:41 | PC.NURSE ---
This patient, Gregg Kendrick, was transferred to [facility] via wheelchair on 11/30/23 at 1335. Personal belongings sent with patient. Report given to FRANCHESCA Davis. Appropriate documentation sent with patient.
[2023-11-30] MEDS: AZITHROMYCIN 500 MG/NS 250 ML 500 MG/250 ML BAG 250 MG IVPB (13:55)
[2023-11-30] MEDS: METOCLOPRAMIDE HCL 10 MG/10 ML SOLN UDC PO ×2 (16:16→20:44)
--- NOTE | 2023-11-30 16:25 | PC.NURSE ---
This patient, Gregg Kendrick, was received from [ICU-10 ] on 11/30/23 at 1335. Report received from FRANCHESCA Roger. Patient/family oriented to unit policies and routines
[2023-11-30 16:34] LABS: Glucose Point of Care 319 mg/dl (65-105)
[2023-11-30] MEDS: INSULIN GLARGINE (*BKC) 100 UNITS/ML 35 UNITS SUB-Q (20:43)
[2023-11-30 22:17] LABS: Glucose Point of Care 189 mg/dl (65-105)
[2023-12-01] MEDS: METOCLOPRAMIDE HCL 10 MG/10 ML SOLN UDC PO ×2 (05:36→10:30)
[2023-12-01 06:00] VITALS: BP 130/69; PULSE 92; RESP 14; TEMP 37; O2SAT 93
[2023-12-01 06:40] LABS: Basophils Percent Auto 0.5 % (0.2-1.2); Eosinophils Absolute Auto 0.1 K/mm3 (0-0.3); Eosinophils Percent Auto 0.6 % (0-4.4); Hematocrit 33.6 % (42.0-52.0); Hemoglobin 11.6 g/dL (14.0-18.0); Immature Granulocyte Absolute 0.23 K/mm3 (0.00-0.031); Immature Granulocyte Percent A 2.7 % (0-0.5); Lymphocytes Absolute Auto 1.58 K/mm3 (0.9-3.2); Lymphocytes Percent Auto 18.6 % (18.3-44.2); Mean Corpuscular HGB Conc 34.5 g/dl (32-36); Mean Corpuscular Hemoglobin 29.1 pg (26-34); Mean Corpuscular Volume 84.4 fl (80-100); Mean Platelet Volume 9.9 fl (7.4-10.4); Monocytes Absolute Auto 0.8 K/mm3 (0.1-0.6); Monocytes Percent Auto 9.2 % (2.6-8.5); Neutrophils Absolute Auto 5.8 K/mm3 (1.3-6.7); Neutrophils Percent Auto 68.4 % (45.5-73.1); Platelet Count Result 247 k/mm3 (150-375); Red Blood Count 3.98 M/mm3 (4.6-6.20); Red Cell Distribution Width 12.3 % (11.5-14.5); White Blood Count 8.5 K/mm3 (4.5-10.0)
[2023-12-01 06:54] LABS: Partial Thromboplastin Time 33.1 SECONDS (22.3-36.8)
[2023-12-01 06:55] LABS: Alanine Aminotransferase 30 U/L (6-50); Albumin Level 2.7 g/dL (3.5-5.1); Alkaline Phosphatase 166 U/L (38-126); Anion Gap 3 mmol/L (8-16); Aspartate Amino Transferase 33 U/L (17-59); Bilirubin,Total 0.4 mg/dL (0.2-1.3); Blood Urea Nitrogen 13 mg/dL (9-20); Calcium 8.3 mg/dL (8.4-10.2); Carbon Dioxide 29 mmol/L (22-30); Chloride 105 mmol/L (98-107); Estimated CRCL calculation 103 ml/min; Estimated Glomerular Filt Rate > 60; Glucose 119 mg/dL (65-110); Magnesium 2.1 mg/dL (1.6-2.3); Sodium 137 mmol/L (137-145)
[2023-12-01 07:16] LABS: CRP 13.8 mg/dL (<1.0)
[2023-12-01 07:32] LABS: Glucose Point of Care 132 mg/dl (65-105)
[2023-12-01 10:20] VITALS: O2SAT 93
[2023-12-01] MEDS: VANCOMYCIN 1,750 MG/NS 500 ML 1,750 MG/500 ML BAG 250 MG IVPB (10:21)
[2023-12-01] MEDS: PANTOPRAZOLE SODIUM IV 40 MG VIAL IV PUSH (10:22)
[2023-12-01] MEDS: NYSTATIN 100,000 UNITS/ML SUSP 5 ML ORAL.SUSP PO ×2 (10:26→13:26)
[2023-12-01] MEDS: ENOXAPARIN 40 MG/0.4 ML SYRINGE SUB-Q (10:27)
[2023-12-01] MEDS: ATORVASTATIN 20 MG TABLET PO (10:28)
[2023-12-01 11:34] LABS: Glucose Point of Care 180 mg/dl (65-105)
[2023-12-01] MEDS: AMOXICILLIN/CLAVULANATE K 875-125 MG TAB 1 TABLET PO (13:26)
[2023-12-01 14:00] VITALS: BP 139/75; PULSE 85; RESP 18; TEMP 37.2; O2SAT 96
--- NOTE | 2023-12-01 16:06 | PC.NURSE ---
On 12/01/23, the FRONT DESK ADMIN, Lara Smith, provided care and completed [employer] documentation on this patient. I have reviewed the FRONT DESK ADMIN's documentation and agree with the findings.
--- NOTE | 2023-12-01 18:20 | PC.NURSE ---
Pt called stating pharmacy won't have any insulin pens until 12/02/23 and is wanting to know what he should do. Pt states they are currently eating dinner. This STAFFING RN contacted provider and made aware of pt concern. provider stated There is nothing I can do. If they want to, they can come back to the ED. This STAFFING RN asked provider if they can call the patient to answer other questions they have and provider stated No I can't but I will take a number. Pt heavily educated to check glucose at AC & HS and to go to ER if glucose over 400 and to eat a snack if below 70. Pt also educated on going to pharmacy in the morning to get insulin pens or to see if another local pharmacy has some.
--- NOTE | 2023-12-15 17:46 | PM.DS ---
DS: Admitting Diagnosis Discharge Date 12/01/23 Admitting Diagnosis Weakness, Cough, N/V DS: Discharge Diagnosis Discharge Diagnosis (1) Hyperlipidemia: Code(s): E78.5 - Hyperlipidemia, unspecified Status: Acute Assessment and Plan: Continue Atorvastatin (2) Type 2 diabetes mellitus: Code(s): E11.9 - Type 2 diabetes mellitus without complications Status: Acute Assessment and Plan: patient with history type 2 diabetes on oral hypoglycemics - glimepiride and metformin -hemoglobin A1c is elevated above, will require insulin for better blood sugar control -continue long-acting insulin and sliding scale insulin for now -pt started on lantus -pt was educated with dm educator (3) Oral thrush: Code(s): B37.0 - Candidal stomatitis Status: Acute Assessment and Plan: resolved - nystatin swish and spit (4) Acute kidney injury: Code(s): N17.9 - Acute kidney failure, unspecified Status: Acute Assessment and Plan: patient presented with diabetic ketoacidosis, pneumonia, decreased oral intake, acute kidney injury with creatinine of 1.70 on admission patient has been fluid resuscitated - creat is better - creatinine 0.80 this morning (5) Sepsis: Code(s): A41.9 - Sepsis, unspecified organism Status: Acute Assessment and Plan: patient presented with shortness of breath, cough, upper respiratory symptoms with nasal congestion. Denies any fevers - patient with leukocytosis, elevated lactic acid, acute kidney injury - lactic acid normalized -11/27; chest x-ray showed right lower lobe pneumonia -11/27: chest CTA : no pulmonary embolism, multifocal pneumonia with lower lung predominance, right worse than left. -11/27: started patient on ceftriaxone, azithromycin and vancomycin given extensive pneumonia -11/27: Blood cultures: Strep pneumo 2/2 bottles -11/29: Repeat blood cultures are negative pt wanting to go home (6) Pneumonia: Code(s): J18.9 - Pneumonia, unspecified organism Status: Acute Assessment and Plan: treatment as above (7) Diabetic ketoacidosis: Code(s): E11.10 - Type 2 diabetes mellitus with ketoacidosis without coma Status: Acute Assessment and Plan: patient admitted on 11/28/2023 with hyperglycemia, anion gap metabolic acidosis and diabetic ketoacidosis, patient received 2 L IV fluid bolus in the ER, started on insulin infusion per DKA protocol - patient given additional 1 L IV fluid bolus in the ICU -patient transition to long-acting insulin and sliding scale insulin overnight -on diabetic diet - hemoglobin A1c 12.1 this admission, pt dc on lantus -patient states he has not been taking care of his sugars and himself, but is going to be moved more carefully and look after himself from here onwards Plan . DS: Summary Hospital Course Hospital Course: 48yo male with DM and HLD here for GNW, body aches, n/v and poor appetite and found to have DKA, PNA and bacteremia. Pt was in ICU or DKA protocol sugars are more stable now. Pt was treated for multifocal pneumonia with lower lung predominance, right worse than left. -11/27: started patient on ceftriaxone, azithromycin and vancomycin given extensive pneumonia -11/27: Blood cultures: Strep pneumo 2/2 bottles -11/29: Repeat blood cultures are negative pt wanting to go home, pt on oral ABX Time Spent with Patient Time attestation: Total time spent providing and/or coordinating discharge services:50 minutes on day of dc Discharge Plan Discharge Attending physician on discharge: Jennifer Hill Consulting providers: Brittany Chaudhary; Nitza Haynes; Mary Zarco; Janes Mazariegos; Daljit Ramirez V.; Nikolai Mcnally Discharging Clinician: Jennifer Hill Anticipated Discharge Date/Time: 12/01/23 13:16 Patient Disposition: Home, Self-Care Activity: as tolerated Diet: diabetic Discharge Instru
== END 2023-12-01 14:35 | disposition home or self-care (01) | DRG 871 ==
LOC: ANHED 09:39 → ANHICU 13:51 → ANH3MEDSUR 11-30 13:27
PROVIDERS: Internal Medicine; Student in an Organized Health Care Education/Training Program; Admitting Provider Internal Medicine; Emergency Provider Nurse Practitioner Family; Visit Provider Family Medicine
DX: A41.9 Sepsis, unspecified organism (principal); E11.10 Type 2 diabetes mellitus with ketoacidosis without coma; J18.9 Pneumonia, unspecified organism; N17.9 Acute kidney failure, unspecified; B37.0 Candidal stomatitis; E78.5 Hyperlipidemia, unspecified; R09.02 Hypoxemia; F17.210 Nicotine dependence, cigarettes, uncomplicated; Z20.822 Contact with and (suspected) exposure to COVID-19
CPT/HCPCS: 36415; 36600; 71045; 71275; 80048; 80053; 80202; 81001; 82010; 82140; 82805; 82947; 82948; 83036; 83605; 83735; 84100; 85025; 85380; 85610; 85730; 86140; 87040; 87077; 87181; 87637; 87641; 93005; 96365; 96367; 99291; A9270; C9113; J0456; J0696; J1650; J1815; J3370; J3480; J7030; J7120; Q9967

== ENCOUNTER 2024-01-30 02:38 | Observation (INO) | payer OTHER, SELFPAY ==
[2024-01-30] VITALS (19 sets, daily range): BP systolic 108–165; BP diastolic 67–94; PULSE 69–117; RESP 15–26; TEMP 35.6–37; O2SAT 88–98
--- NOTE | ~2024-01-30 | XR_ITS ---
Portable chest x-ray Comparison: 12/01/2023 Clinical History: Shortness of breath Findings: Lungs are clear, without focal consolidation or pleural effusion. Cardiomediastinal silho uette is stable. Bones and soft tissues are unremarkable. Impression: Clear lungs. Reviewed, dictated and finalized at location . Impression: Clear lungs.
--- NOTE | ~2024-01-30 | CT_ITS ---
Clinical Indication: Dyspnea CT Scan of the Chest with Contrast: Technique: Contiguous sections were acquired throughout the chest after intravenous administration of 100 cc of Omnipaque 350. Dose reduction technique was used on this scan by utilizing automated expos ure control and iterative reconstruction technique. The dose-length product (DLP) was 270.07 mGy-cm. COMPARISON: 11/28/2023 Findings: There is no evidence of any significant mediastinal, hilar or axillary lymphadenopathy. There is no f illing defect in the pulmonary arterial tree to suggest pulmonary embolus. There is no evidence of ao rtic dissection or aneurysm. There is no evidence of pleural or pericardial effusion. Previously noted right lower lobe consolidation is considerably improved, with residual groundglass o pacity in area of probable scarring or atelectatic change. Several additional minimal scattered groun dglass opacities are present in the remainder of the lungs, also improved in terms of extent and numb er of lesions present. Images through the upper abdomen reveal no abnormalities. Impression: No evidence of pulmonary embolus, aortic dissection, or aortic aneurysm. Significant interval improvement in right lower lobe pneumonia, as well as small focal scattered area s of additional bilateral pneumonitis. Reviewed, dictated and finalized at [facility]. Impression: No evidence of pulmonary embolus, aortic dissection, or aortic aneurysm. Significant interval improvement in right lower lobe pneumonia, as well as smal l focal scattered areas of additional bilateral pneumonitis.
--- NOTE | 2024-01-30 02:48 | ECG_ITS ---
SEE SCANNED COPY FOR CONFIRMED REPORT MTDD
[2024-01-30 03:10] LABS: Basophils Absolute Auto 0.1 K/mm3 (0.0-0.1); Basophils Percent Auto 0.4 % (0.2-1.2); Eosinophils Absolute Auto 0.1 K/mm3 (0-0.3); Hematocrit 42.5 % (42.0-52.0); Hemoglobin 14.2 g/dL (14.0-18.0); Immature Granulocyte Absolute 0.02 K/mm3 (0.00-0.031); Immature Granulocyte Percent A 0.2 % (0-0.5); Lymphocytes Absolute Auto 2.27 K/mm3 (0.9-3.2); Mean Corpuscular HGB Conc 33.4 g/dl (32-36); Mean Corpuscular Hemoglobin 29.6 pg (26-34); Mean Corpuscular Volume 88.5 fl (80-100); Mean Platelet Volume 9.3 fl (7.4-10.4); Monocytes Absolute Auto 0.7 K/mm3 (0.1-0.6); Monocytes Percent Auto 5.5 % (2.6-8.5); Neutrophils Absolute Auto 9.5 K/mm3 (1.3-6.7); Neutrophils Percent Auto 74.9 % (45.5-73.1); Platelet Count Result 271 k/mm3 (150-375); Red Cell Distribution Width 12.4 % (11.5-14.5); White Blood Count 12.6 K/mm3 (4.5-10.0)
--- NOTE | 2024-01-30 03:12 | ED.GENADULT ---
HPI - General Adult General Chief complaint: Shortness of Breath/Dyspnea Stated complaint: SOB, cough Time Seen by Provider: 01/30/24 02:48 History of Present Illness HPI narrative: Patient is a 48-year-old gentleman presents emergency department with chief complaint of shortness of breath and cough. Patient reports that he has been treated for pneumonia has had some hospitalizations recently and reports that this evening he was checking his oxygen and it was in the 80s. The patient states that he feels as though he can not get a good deep breath in and reports that he has had a productive cough Related Data Home Medications Medication Instructions Recorded Confirmed atorvastatin 20 mg tablet 20 mg PO DAILY 11/28/23 11/28/23 metformin 500 mg tablet 500 mg PO BID 11/28/23 11/28/23 Allergies Allergy/AdvReac Type Severity Reaction Status Date / Time No Known Allergies Allergy Mild Verified 01/06/24 11:39 Review of Systems Review of Systems: A 10 system review of systems was completed on the patient and is negative except for what is stated in the HPI. Nursing and ancillary documentation was reviewed. [facility] Past Medical History Medical History Hyperlipidemia Type 2 diabetes mellitus Surgical History Surgical History History of appendectomy Family History Family History Father Hypertension Heart disease Cerebrovascular accident Mother Breast cancer Heart disease Social History Social History Smoking packs per day: 1 Smoking cigarettes per day: 20.0 Years smoked: 20 Smoking pack-years: 20.00 Smoking status: Current every day smoker Tobacco type: cigarettes Smoking end date: 11/21/23 Alcohol intake: current Alcohol use details: beer Substance use: unknown Do You Feel Safe in your Home?: Yes Lack of Transportation: No Lack of Food: Never True Current Housing: I Have Housing Concerned About Future Housing: No Difficulty Paying Gas/Electric Bills: No Difficulty Paying for Meds: No Currently Unemployed: No Education: Decline to Answer Difficulty w/ Childcare or Family Care: No Spiritual care concerns: No Exam Narrative: GENERAL: Well-appearing, well-nourished, and in no acute distress. HEAD: Normocephalic, atraumatic. EYES: PERRLA and EOMI. ENT: Nares clear, no rhinorrhea or epistaxis. Mucous membranes moist. NECK: Supple. CHEST: Clear to auscultation. No respiratory distress. HEART: Regular rate and rhythm. No murmur heard. Normal peripheral pulses. ABDOMEN: Soft, nontender, nondistended, normal active bowel sounds. EXTREMITIES: Normal range of motion. No edema. SKIN: Warm, dry, no rash. NEURO: No focal deficits. Alert and oriented x3. PSYCH: Normal mood and affect. Course Vital Signs Vital signs: Vital Signs Temperature 36.4 C 01/30/24 02:40 Pulse Rate 117 H 01/30/24 02:40 Respiratory Rate 22 H 01/30/24 02:40 Blood Pressure 165/82 H 01/30/24 02:40 Pulse Oximetry 88 L 01/30/24 02:40 Oxygen Delivery Room Air 01/30/24 02:40 Temperature 36.4 C 01/30/24 02:40 Pulse Rate 100 01/30/24 04:50 Respiratory Rate 25 H 01/30/24 04:50 Blood Pressure 131/86 01/30/24 04:50 Pulse Oximetry 97 01/30/24 04:50 Oxygen Delivery Nasal Cannula 01/30/24 04:01 Oxygen Flow Rate 2 01/30/24 04:01 Medical Decision Making Vital Signs Vital Signs: Vital Signs Temperature 36.4 C 01/30/24 02:40 Pulse Rate 117 H 01/30/24 02:40 Respiratory Rate 22 H 01/30/24 02:40 Blood Pressure 165/82 H 01/30/24 02:40 Pulse Oximetry 88 L 01/30/24 02:40 Oxygen Delivery Room Air 01/30/24 02:40 Temperature 36.4 C 01/30/24 02:40 Pulse Rate 100 01/30/24 04:50
[2024-01-30 03:20] LABS: Alveolar/Arterial O2 Gradient 29.3 mmHg; Base Excess ABG 0.3 mEq/l (+/-2.0); Fractional Inspired Oxygen 21 %; HCO3 ABG 26.6 mEq/l (22.0-26.0); Oxygen Content ABG 17.7 %vol (16.0-22.0); Oxygen Saturation ABG 89.9 % (95.0-100.0); PCO2 ABG 49.7 mmHg (35.0-45.0); PO2 ABG 60.9 mmHg (80.0-100.0); Total Hemoglobin 14.4 g/dL (12.0-18.0); pH ABG 7.347 (7.350-7.450)
[2024-01-30 03:21] LABS: Device ROOM AIR; Modified Allen's Test Pass; Oxyhemoglobin 87.3 % THb (90.0-100.0); Site Drawn RIGHT RADIAL
[2024-01-30 03:23] LABS: INR 0.9
[2024-01-30] MEDS: IPRATROPIUM 0.5 MG/ALBUTEROL SULFATE 2.5 MG AMPUL.NEB 3 ML INHALATION ×4 (03:27→19:19)
[2024-01-30 03:31] LABS: Troponin I < 0.012 ng/mL (0.000-0.034)
[2024-01-30 03:38] LABS: Alanine Aminotransferase 39 U/L (6-50); Albumin Level 4.4 g/dL (3.5-5.1); Alkaline Phosphatase 111 U/L (38-126); Anion Gap 7 mmol/L (4-12); Aspartate Amino Transferase 29 U/L (17-59); Bilirubin,Total 0.5 mg/dL (0.2-1.3); Blood Urea Nitrogen 18 mg/dL (9-20); Calcium 9.3 mg/dL (8.4-10.2); Carbon Dioxide 28 mmol/L (22-30); Chloride 105 mmol/L (98-107); Estimated CRCL calculation 92 ml/min; Estimated Glomerular Filt Rate > 60; Glucose 184 mg/dL (65-110); Potassium 4.7 mmol/L (3.4-5.0); Sodium 140 mmol/L (137-145)
[2024-01-30 03:46] LABS: Influenza A QL RT-PCR Negative (Negative); Influenza B QL RT-PCR Negative (Negative); RSV RNA, RT-PCR Negative (Negative); SARS-CoV-2 RNA PCR Negative (Negative)
[2024-01-30 03:47] LABS: NT Pro B Type Natriuretic Pept 49 pg/mL (19.9-100)
[2024-01-30 03:53] LABS: Procalcitonin 0.1 ng/mL
[2024-01-30] MEDS: methylPREDNISolone SOD SUCC 125 MG VIAL IV PUSH (06:10)
--- NOTE | 2024-01-30 06:15 | ECG_ITS ---
SEE SCANNED COPY FOR CONFIRMED REPORT MTDD
[2024-01-30 06:35] LABS: Troponin I < 0.012 ng/mL (0.000-0.034)
[2024-01-30 06:44] LABS: Appearance Urine Clear (Clear); Bilirubin Urine Negative (Negative); Blood Urine Negative (Negative); Color Urine Yellow (Yellow); Glucose Urine UA Negative (Negative); Ketones Urine 1+ mg/dL (Negative); Leukocyte Esterase Ur Negative LEU/UL (Negative); Nitrate Urine Negative (Negative); Protein Urine Negative (Negative); Urobilinogen Urine 0.2 mg/dL (<2.0); pH Urine 5.5 (5.0-9.0)
[2024-01-30 06:48] LABS: Add Urine Microscopic? NO; Specific Grav Ur 1.047 (1.001-1.035)
[2024-01-30 07:49] LABS: Glucose Point of Care 184 mg/dl (65-105)
--- NOTE | 2024-01-30 08:17 | ADMGEN ---
This patient, Gregg Kendrick, was admitted to [facility] S[facility] Room 314-02. Patient/family oriented to hospital policies and general routines including ID bracelet, bed and alarms, visiting hours, pain management, procedures, bathroom and other care routines, personal items, smoking policy, room service/diet, and visiting hours. Information on how to activate the Rapid Response Team has been discussed. Patient/Family are encouraged to report perceived risks to care and to ask questions if they do not understand what they are told or what they should do.
--- NOTE | 2024-01-30 09:05 | PM.IMHP ---
H&P: HPI History of Present Illness Date/Time: 01/30/24 09:05 Chief Complaint: SOB/productive cough Narrative: Patient is a 48-year-old male who presented to the emergency department with complaints of shortness of breath and productive cough. Patient recently admitted back on 11/29 with acute respiratory failure with hypoxia secondary to strep pneumonia and diabetic ketoacidosis. Patient states for the last few days he has had an ongoing productive cough and worsening shortness of breath with exertion so he checked his pulse ox at home which showed his oxygen saturation in the 80s. Patient with past medical history of COPD diabetes type 2. Upon evaluation in the emergency department patient's initial oxygen saturation was at 80% on room air, leukocytosis of 22, ABG PCO2 49.7/PO2 60.9/HCO3 26.6,elevated BS of 184, CTA chest showed no pulmonary emboli, significant improvement to his right lower lobe pneumonia and bilateral pneumonitis. Patient was placed on 2 L supplemental oxygen with improvement he was admitted to the medical unit for further evaluation treatment acute respiratory failure with hypoxia will continue with 2 units steroids will need to monitor patient's blood sugars closely while on steroids. Review of Systems Review of Systems: All systems reviewed & are unremarkable except as noted in HPI and below PMFSH Past Medical History Medical History Hyperlipidemia Type 2 diabetes mellitus Surgical History Surgical History History of appendectomy Family History Family History Father Hypertension Heart disease Cerebrovascular accident Mother Breast cancer Heart disease Social History Social History Smoking packs per day: 1 Smoking cigarettes per day: 20.0 Years smoked: 20 Smoking pack-years: 20.00 Smoking status: Current every day smoker Tobacco type: cigarettes Smoking end date: 11/21/23 Alcohol intake: never Alcohol use details: beer Substance use: never Substance use type: does not use Do You Feel Safe in your Home?: Yes Lack of Transportation: No Lack of Food: Never True Current Housing: I Have Housing Concerned About Future Housing: No Difficulty Paying Gas/Electric Bills: No Difficulty Paying for Meds: No Currently Unemployed: No Education: Don't Know Difficulty w/ Childcare or Family Care: No Spiritual care concerns: No Meds Home Medications and Allergies Home Medications Medication Instructions Recorded Confirmed Type atorvastatin 20 mg tablet 20 mg PO DAILY 11/28/23 01/30/24 History metformin 500 mg tablet 500 mg PO BID 11/28/23 01/30/24 History benzonatate 100 mg capsule 100 mg PO TID PRN Cough #30 caps 12/01/23 01/30/24 Rx blood ketone glucose monitor #1 ea 12/01/23 01/30/24 Rx lancets (Accu-Chek Softclix #50 ea 12/01/23 01/30/24 Rx Lancets) pen needle, diabetic 29 gauge #90 ea 12/01/23 01/30/24 Rx glimepiride 2 mg tablet 2 mg PO BID 01/30/24 01/30/24 History Allergies Allergy/AdvReac Type Severity Reaction Status Date / Time No Known Allergies Allergy Mild Verified 01/30/24 08:50 Vital Signs Vital Signs - 24 hr 01/30/24 02:40 01/30/24 02:50 01/30/24 03:07 Temperature 97.6 F Pulse Rate 117 H 110 H Respiratory Rate 22 H 25 H Blood Pressure 165/82 H 144/94 H Pulse Oximetry 88 L 97 Oxygen Delivery Room Air Room Air Oxygen Flow Rate 01/30/24 03:19 01/30/24 03:27 01/30/24 03:45 Temperature Pulse Rate 111 H 105 H 107 H Respiratory Rate 25 H 15 20 Blood Pressure 144/94 H Pulse Oximetry 94 96 Oxygen Delivery Oxygen Flow Rate 01/30/24 04:01 01/30/24 04:01 01/30/24 04:50 Temperature Pulse Rate 100 Respiratory Rate 25 H Blood Pressure 131/86
[2024-01-30 09:23] LABS: Hemoglobin A1C 6.5 % (<5.7)
[2024-01-30] MEDS: guaiFENesin 12 HR 600 MG TABCR PO ×2 (10:02→21:16)
[2024-01-30] MEDS: AZITHROMYCIN 500 MG/NS 250 ML 500 MG/250 ML BAG 250 MG IVPB (10:02)
[2024-01-30] MEDS: ENOXAPARIN 40 MG/0.4 ML SYRINGE SUB-Q (10:02)
[2024-01-30 11:36] LABS: Glucose Point of Care 227 mg/dl (65-105)
[2024-01-30] MEDS: INSULIN ASPART (*BKC) 100 UNITS/ML SUB-Q ×2 (12:00→16:57)
[2024-01-30] MEDS: methylPREDNISolone SOD SUCC 125 MG VIAL 60 MG IV PUSH ×2 (13:57→21:16)
[2024-01-30 16:39] LABS: Glucose Point of Care 320 mg/dl (65-105)
[2024-01-30 20:54] LABS: Glucose Point of Care 332 mg/dl (65-105)
[2024-01-30] MEDS: LORATADINE 10 MG TABLET PO (21:16)
[2024-01-30] MEDS: ATORVASTATIN 20 MG TABLET PO (21:16)
[2024-01-30] MEDS: INSULIN ASPART (*BKC) 100 UNITS/ML 8 UNITS SUB-Q (21:19)
[2024-01-31] VITALS (14 sets, daily range): BP systolic 105–119; BP diastolic 69–70; PULSE 85–101; RESP 18–20; TEMP 35.7–36.8; O2SAT 91–100
[2024-01-31 01:50] LABS: Glucose Point of Care 244 mg/dl (65-105)
[2024-01-31] MEDS: IPRATROPIUM 0.5 MG/ALBUTEROL SULFATE 2.5 MG AMPUL.NEB 3 ML INHALATION ×4 (01:54→20:14)
[2024-01-31] MEDS: methylPREDNISolone SOD SUCC 125 MG VIAL 60 MG IV PUSH (05:35)
[2024-01-31 06:12] LABS: Hemoglobin 14.7 g/dL (14.0-18.0); Mean Corpuscular HGB Conc 34.2 g/dl (32-36); Mean Corpuscular Hemoglobin 29.4 pg (26-34); Mean Platelet Volume 9.6 fl (7.4-10.4); Platelet Count Result 307 k/mm3 (150-375); Red Cell Distribution Width 12.1 % (11.5-14.5); White Blood Count 11.4 K/mm3 (4.5-10.0)
[2024-01-31 06:26] LABS: Alanine Aminotransferase 33 U/L (6-50); Albumin Level 4.4 g/dL (3.5-5.1); Alkaline Phosphatase 97 U/L (38-126); Anion Gap 8 mmol/L (4-12); Aspartate Amino Transferase 17 U/L (17-59); Bilirubin,Total 0.5 mg/dL (0.2-1.3); Blood Urea Nitrogen 18 mg/dL (9-20); Calcium 9.4 mg/dL (8.4-10.2); Carbon Dioxide 26 mmol/L (22-30); Chloride 104 mmol/L (98-107); Estimated CRCL calculation 103 ml/min; Estimated Glomerular Filt Rate > 60; Glucose 303 mg/dL (65-110); Potassium 4.5 mmol/L (3.4-5.0); Sodium 138 mmol/L (137-145)
[2024-01-31 07:24] LABS: Glucose Point of Care 294 mg/dl (65-105)
[2024-01-31] MEDS: ENOXAPARIN 40 MG/0.4 ML SYRINGE SUB-Q (08:52)
[2024-01-31] MEDS: PANTOPRAZOLE 40 MG TABLET PO (08:52)
[2024-01-31] MEDS: guaiFENesin 12 HR 600 MG TABCR PO ×2 (08:52→21:03)
[2024-01-31] MEDS: INSULIN ASPART (*BKC) 100 UNITS/ML SUB-Q ×3 (08:53→17:38)
[2024-01-31 11:18] LABS: Glucose Point of Care 380 mg/dl (65-105)
[2024-01-31] MEDS: predniSONE 20 MG TABLET 40 MG PO (11:19)
[2024-01-31] MEDS: AZITHROMYCIN 500 MG/NS 250 ML 500 MG/250 ML BAG 250 MG IVPB (11:19)
--- NOTE | 2024-01-31 13:05 | P.PNIM_ITS ---
Progress Note: A&P Assessment and Plan (1) Acute hypoxic respiratory failure: Code(s): J96.01 - Acute respiratory failure with hypoxia Status: Acute (2) Acute exacerbation of chronic bronchitis: Code(s): J20.9 - Acute bronchitis, unspecified; J42 - Unspecified chronic bronchitis Status: Acute (3) Type 2 diabetes mellitus: Code(s): E11.9 - Type 2 diabetes mellitus without complications Status: Acute (4) Hyperlipidemia: Code(s): E78.5 - Hyperlipidemia, unspecified Status: Acute Plan Acute respiratory failure with hypoxia secondary to COPD exacerbation * Bronchodilators. * CTA pneumonitis/negative for PE * incentive spirometry while awake. * steroids initiated * azithromycin 500 x 1 day/250 daily/Rocephin empirically * Recently treated for Strep Pneumonia but CT shows significant improvement * supplemental oxygen therapy to maintain oxygen 92% * Pneumonia and flu vaccination advised. * Disease management following GOLD guidelines. * Repeat hospitalization risk evaluation per [facility] * Evaluation from home O2 if saturation less than 88% on room air. * Smoking cessation counseling done 01/30: * transition to PO prednisone daily * wean supplemental oxygen Diabetes * Will need to monitor closely due to current steroid use previous history of DKA * Accu-Cheks a.c. HS * Moderate sliding scale insulin * hold oral diabetic medications had CTA hold at least 48-72 hours * Hemoglobin A1c goal less than 7 pending * Diabetic diet * encourage lifestyle modifications and weight loss * Optimize Brody inhibitors and statins. * Watch for hypoglycemia/hypoglycemic protocol ordered Smoking ? smoking cessation education HX HLD: Resume statin Code status: Full code per patient DVT prophylaxis: Lovenox Stress ulcer prophylaxis: Protonix 40 daily PT/OT notes: Ambulatory Disposition: Patient admitted with acute respiratory failure secondary to COPD exacerbation patient recently treated for strep pneumonia which showed significant improvement on CT however patient continues to smoke post discharge likely cause COPD exacerbation. Continue with DuoNeb steroids wean oxygen as tolerated. Treat empirically with antibiotic therapy for COPD/pneumonia. Plan will be for patient to return home when medically stable. Time Spent With Patient Time with patient: 15 - 25 minutes Subjective Date/time seen: 01/31/24 13:05 Interval history: SOB/productive cough Narrative: Patient is a 48-year-old male who presented to the emergency department with complaints of shortness of breath and productive cough.? Patient recently admitt ed back on 03/06 with acute respiratory failure with hypoxia secondary to strep pneumonia and diabetic ketoacidosis.? Patient states for the last few days he has had an ongoing productive cough and worsening shortness of breath with exertion so he checked his pulse ox at home which showed his oxygen saturation in the 80s.? Patient with past medical history of COPD diabetes type 2.? Upon evaluation in the emergency department patient's initial oxygen saturation was at 80% on room air, leukocytosis of 22, ABG PCO2 49.7/PO2 60.9/HCO3 26.6,elevated BS of 184, CTA chest showed no pulmonary emboli, significant improvement to his right lower lobe pneumonia and bilateral pneumonitis. Patient was placed on 2 L supplemental oxygen with improvement he was admitted to the medical unit for further evaluation treatment acute respiratory failure with hypoxia will continue
--- NOTE | 2024-01-31 13:05 | PM.IMPN ---
Progress Note: A&P Assessment and Plan (1) Acute hypoxic respiratory failure: Code(s): J96.01 - Acute respiratory failure with hypoxia Status: Acute (2) Acute exacerbation of chronic bronchitis: Code(s): J20.9 - Acute bronchitis, unspecified; J42 - Unspecified chronic bronchitis Status: Acute (3) Type 2 diabetes mellitus: Code(s): E11.9 - Type 2 diabetes mellitus without complications Status: Acute (4) Hyperlipidemia: Code(s): E78.5 - Hyperlipidemia, unspecified Status: Acute Plan Acute respiratory failure with hypoxia secondary to COPD exacerbation Bronchodilators. CTA pneumonitis/negative for PE incentive spirometry while awake. steroids initiated azithromycin 500 x 1 day/250 daily/Rocephin empirically Recently treated for Strep Pneumonia but CT shows significant improvement supplemental oxygen therapy to maintain oxygen 92% Pneumonia and flu vaccination advised. Disease management following [facility] guidelines. Repeat hospitalization risk evaluation per [facility] Evaluation from home O2 if saturation less than 88% on room air. Smoking cessation counseling done 01/30: transition to PO prednisone daily wean supplemental oxygen Diabetes Will need to monitor closely due to current steroid use previous history of DKA Accu-Cheks a.c. HS Moderate sliding scale insulin hold oral diabetic medications had CTA hold at least 48-72 hours Hemoglobin A1c goal less than 7 pending Diabetic diet encourage lifestyle modifications and weight loss Optimize Brody inhibitors and statins. Watch for hypoglycemia/hypoglycemic protocol ordered Smoking ? smoking cessation education HX HLD: Resume statin Code status: Full code per patient DVT prophylaxis: Lovenox Stress ulcer prophylaxis: Protonix 40 daily PT/OT notes: Ambulatory Disposition: Patient admitted with acute respiratory failure secondary to COPD exacerbation patient recently treated for strep pneumonia which showed significant improvement on CT however patient continues to smoke post discharge likely cause COPD exacerbation. Continue with DuoNeb steroids wean oxygen as tolerated. Treat empirically with antibiotic therapy for COPD/pneumonia. Plan will be for patient to return home when medically stable. Time Spent With Patient Time with patient: 15 - 25 minutes Subjective Date/time seen: 01/31/24 13:05 Interval history: SOB/productive cough Narrative: Patient is a 48-year-old male who presented to the emergency department with complaints of shortness of breath and productive cough.? Patient recently admitted back on 11/29 with acute respiratory failure with hypoxia secondary to strep pneumonia and diabetic ketoacidosis.? Patient states for the last few days he has had an ongoing productive cough and worsening shortness of breath with exertion so he checked his pulse ox at home which showed his oxygen saturation in the 80s.? Patient with past medical history of COPD diabetes type 2.? Upon evaluation in the emergency department patient's initial oxygen saturation was at 80% on room air, leukocytosis of 22, ABG PCO2 49.7/PO2 60.9/HCO3 26.6,elevated BS of 184, CTA chest showed no pulmonary emboli, significant improvement to his right lower lobe pneumonia and bilateral pneumonitis. Patient was placed on 2 L supplemental oxygen with improvement he was admitted to the medical unit for further evaluation treatment acute respiratory failure with hypoxia will continue with 2 units steroids will need to monitor patient's blood sugars closely while on steroids.? 01/30: Patient feeling better today still with some mild to moderate wheezing. Glucose elevated will transition to PO prednisone and stop IV steroids on moderate dose SS. Wean supplemental oxygen, WBC trending down. Review of Systems Review of Systems: All systems reviewed & are unremarkable except as noted in HPI a
[2024-01-31 16:44] LABS: Glucose Point of Care 344 mg/dl (65-105)
[2024-01-31] MEDS: LORATADINE 10 MG TABLET PO (21:03)
[2024-01-31] MEDS: ATORVASTATIN 20 MG TABLET PO (21:03)
[2024-01-31 21:36] LABS: Glucose Point of Care 356 mg/dl (65-105)
[2024-01-31] MEDS: INSULIN ASPART (*BKC) 100 UNITS/ML 10 UNITS SUB-Q (22:05)
[2024-02-01] MEDS: IPRATROPIUM 0.5 MG/ALBUTEROL SULFATE 2.5 MG AMPUL.NEB 3 ML INHALATION ×2 (03:17→07:30)
[2024-02-01 03:18] VITALS: PULSE 79; RESP 18
[2024-02-01 04:26] VITALS: BP 107/70; PULSE 100; RESP 16; TEMP 36.4; O2SAT 94
[2024-02-01 06:48] LABS: Hematocrit 39.6 % (42.0-52.0); Mean Corpuscular HGB Conc 32.8 g/dl (32-36); Mean Corpuscular Hemoglobin 28.9 pg (26-34); Mean Platelet Volume 9.7 fl (7.4-10.4); Platelet Count Result 324 k/mm3 (150-375); Red Cell Distribution Width 12.2 % (11.5-14.5); White Blood Count 10.3 K/mm3 (4.5-10.0)
[2024-02-01 06:55] LABS: Alanine Aminotransferase 24 U/L (6-50); Albumin Level 3.7 g/dL (3.5-5.1); Alkaline Phosphatase 85 U/L (38-126); Anion Gap 7 mmol/L (4-12); Aspartate Amino Transferase 13 U/L (17-59); Bilirubin,Total 0.3 mg/dL (0.2-1.3); Blood Urea Nitrogen 23 mg/dL (9-20); Calcium 9.3 mg/dL (8.4-10.2); Carbon Dioxide 26 mmol/L (22-30); Chloride 108 mmol/L (98-107); Estimated CRCL calculation 92 ml/min; Estimated Glomerular Filt Rate > 60; Glucose 328 mg/dL (65-110); Sodium 141 mmol/L (137-145)
[2024-02-01 07:30] VITALS: PULSE 81; RESP 18
[2024-02-01 07:31] VITALS: O2SAT 98
[2024-02-01 07:33] LABS: Glucose Point of Care 297 mg/dl (65-105)
[2024-02-01 07:44] VITALS: PULSE 86; RESP 18
[2024-02-01] MEDS: predniSONE 20 MG TABLET 40 MG PO (08:43)
[2024-02-01] MEDS: PANTOPRAZOLE 40 MG TABLET PO (08:43)
[2024-02-01] MEDS: INSULIN ASPART (*BKC) 100 UNITS/ML SUB-Q ×2 (08:44→12:26)
[2024-02-01] MEDS: guaiFENesin 12 HR 600 MG TABCR PO (08:44)
[2024-02-01] MEDS: ENOXAPARIN 40 MG/0.4 ML SYRINGE SUB-Q (08:47)
[2024-02-01] MEDS: AZITHROMYCIN 500 MG/NS 250 ML 500 MG/250 ML BAG 250 MG IVPB (09:25)
[2024-02-01 11:23] LABS: Glucose Point of Care 225 mg/dl (65-105)
--- NOTE | 2024-02-01 13:17 | PM.DS ---
DS: Admitting Diagnosis Discharge Date 02/01/24 Admitting Diagnosis SOB/productive cough DS: Discharge Diagnosis Discharge Diagnosis (1) Acute hypoxic respiratory failure: Code(s): J96.01 - Acute respiratory failure with hypoxia Status: Acute Assessment and Plan: CTA pneumonitis/negative for PE incentive spirometry PO prednisone continued for 5 day course d/c azithromycin and Rocephin at d/c as the CXR showed clear lungs Recently treated for Strep Pneumonia with Augmentin in November; CT shows significant improvement on room air Pneumonia and flu vaccination advised. (2) Acute exacerbation of chronic bronchitis: Code(s): J20.9 - Acute bronchitis, unspecified; J42 - Unspecified chronic bronchitis Status: Acute Assessment and Plan: see above (3) Type 2 diabetes mellitus: Code(s): E11.9 - Type 2 diabetes mellitus without complications Status: Chronic Assessment and Plan: close monitoring of blood sugars at home while on steroids resume home medications (4) Hyperlipidemia: Code(s): E78.5 - Hyperlipidemia, unspecified Status: Chronic DS: Summary Hospital Course Hospital Course: Patient is a 48-year-old male with PMH of COPD, diabetes type 2, HTN, and HLD admitted for shortness of breath and productive cough. Patient recently admitted back on 11/29 with acute respiratory failure with hypoxia secondary to strep pneumonia and diabetic ketoacidosis. He was treated with Augmentin outpatient. Upon evaluation in the emergency department patient's initial oxygen saturation was at 80% on room air, leukocytosis of 22, ABG PCO2 49.7/PO2 60.9/HCO3 26.6,elevated BS of 184, CTA chest showed no pulmonary emboli, significant improvement to his right lower lobe pneumonia and bilateral pneumonitis. Patient CXR showed clear lungs. He was treated with steroids, empiric AB therapy while in patient and was weaned back to room air. Discussed blood sugar management while completing course of PO steroids. Patient is stable for d/c home. Status at Discharge Functional status at discharge: independent ambulation Overall status at discharge: patient is back to baseline Time Spent with Patient Time attestation: Total time spent providing and/or coordinating discharge services: Exam Narrative: GENERAL: Well appearing male sitting up in bed, No acute distress. EYES: EOMI. PERRLA. HEENT: Moist mucous membranes. LUNGS: Lungs clear to auscultation. No accessory muscle use. CARDIOVASCULAR: RRR. No murmur. S1-S2 ABDOMEN: Soft, non-tender and non-distended. BS active. EXTREMITIES: No edema. SKIN: No rashes or lesions. Skin warm, dry. NEUROLOGIC: Alert and oriented x 3. No focal neurological deficits. PSYCHIATRIC: Appropriate mood and affect. Good judgement and insight. DS: Data Data Completed and Pending Labs on day of discharge: Labs from last 24 hours 02/01/24 02/01/24 02/01/24 11:04 07:27 05:50 WBC 10.3 H RBC 4.50 L Hgb 13.0 L Hct 39.6 L MCV 88.0 MCH 28.9 MCHC 32.8 RDW 12.2 Plt Count 324 MPV 9.7 Sodium 141 Potassium 4.0 Chloride 108 H Carbon Dioxide 26 Anion Gap 7 BUN 23 H Creatinine 0.90 Estim Creat Clear Calc 92 Estimated GFR > 60 Glucose 328 H POC Capillary Glucose 225 H 297 H Calcium 9.3 Total Bilirubin 0.3 AST 13 L ALT 24 Alkaline Phosphatase 85 Total Protein 6.0 L Albumin 3.7 01/31/24 01/31/24 21:06 16:34 WBC RBC Hgb Hct MCV MCH MCHC RDW Plt Count MPV Sodium Potassium Chloride Carbon Dioxide Anion Gap BUN Creatinine Estim Creat Clear Calc Estimated GFR Glucose POC Capillary Glucose 356 H 344 H Calcium Total Bilirubin AST ALT Alkaline Phosphatase Total Protein Albumin Preliminary micro results at discharge 01/30/24 03:11 Blood Culture - Preliminary B
--- NOTE | 2024-02-06 09:45 | PC.NURSE ---
Blood cx are negative.
== END 2024-02-01 15:00 | disposition home health service (06) ==
LOC: ANHED 06:56 → ANH3MEDSUR 07:20
PROVIDERS: Nurse Practitioner Family; Admitting Provider Internal Medicine; Emergency Provider Emergency Medicine; PCP Nurse Practitioner Family; Visit Provider Internal Medicine
DX: J96.01 Acute respiratory failure with hypoxia (principal); J44.1 Chronic obstructive pulmonary disease with (acute) exacerbation; E11.9 Type 2 diabetes mellitus without complications; E78.5 Hyperlipidemia, unspecified; Z79.84 Long term (current) use of oral hypoglycemic drugs; F17.210 Nicotine dependence, cigarettes, uncomplicated; Z20.822 Contact with and (suspected) exposure to COVID-19
CPT/HCPCS: 36415; 36600; 71045; 71275; 80053; 81003; 82805; 82948; 83036; 83880; 84145; 84484; 85025; 85027; 85610; 85730; 87040; 87637; 93005; 94640; 96365; 96366; 96368; 96372; 96374; 96375; 99285; A9270; G0378; J0456; J0696; J1650; J1815; J2919; J7512; Q9967